=== PATIENT | male | born 1950 | race Caucasian/White ===

== ENCOUNTER → 2020-05-03 | Day surgery (SDC) | payer MEDICARE, OTHER ==
[2020-04-30 11:44] LABS: BASOPHILS # (AUTO) 0.1 (0.0-0.1); BASOPHILS % 0.5 % (0.0-1.0); EOSINOPHILS # (AUTO) 0.3 (0.0-0.4); EOSINOPHILS % 2.1 % (0.0-6.0); HEMATOCRIT 35.2 % (38.2-49.6); HEMOGLOBIN 10.7 g/dL (14.0-18.0); LYMPHOCYTES # (AUTO) 0.6 (1.0-3.2); LYMPHOCYTES % 5.2 % (18.0-39.1); MEAN CORPUSCULAR HEMOGLOBIN 28.7 pg (28-32); MEAN CORPUSCULAR HGB CONC 30.4 g/dL (31-35); MEAN CORPUSCULAR VOLUME 94.4 fL (81-99); MONOCYTES # (AUTO) 0.8 (0.2-0.8); MONOCYTES % 6.4 % (4.4-11.3); NEUTROPHILS # (AUTO) 10.1 (2.1-6.9); NEUTROPHILS % 85.5 % (38.7-80.0); PLATELET COUNT 224 x10e3/uL (140-360); RED BLOOD COUNT 3.73 x10e6/uL (4.3-5.7); RED CELL DISTRIBUTION WIDTH 15.4 % (11.7-14.4)
--- NOTE | 2020-04-30 11:45 | Diagnostic Imaging Report ---
EXAM: CHEST 2 VIEWS DATE: 04/30/2020 11:26 AM INDICATION: Preoperative evaluation COMPARISON: None FINDINGS: The trachea is midline. The lungs are symmetrically expanded without evidence for large focal consolidation, pneumothorax, or significant pleural effusion. The cardiomediastinal silhouette and pulmonary vasculature are within normal limits. No acute osseous abnormality is identified. The surrounding soft tissues are unremarkable. IMPRESSION: No acute cardiopulmonary process identified. Signed by: Dr. Lamberto Hughes MD on 04/30/2020 11:41 AM
[2020-04-30 12:00] LABS: ANION GAP 15.8 mmol/L (8-16); CALCIUM 9.7 mg/dL (8.4-10.2); CREATININE, SERUM 6.67 mg/dL (0.72-1.25); POTASSIUM 3.8 mmol/L (3.5-5.1)
[~2020-05-03] MED LIST: ACETAMINOPHEN 1000 MG/100 ML IV ONE; ACETAMINOPHEN/CODEINE 300MG - 30MG TAB ONE; ASPIR 8181 MG PO; BUPIVACAINE 0.25% 30ML SDV INJ ONE; CEFTRIAXONE SOD 1 GM/NS 50 ML 50 ML IV ONE; DEXAMETHASONE SOD PHOS INJ 4 MG/ML VIAL ONE; ETOMIDATE 2 MG/ML 10 ML INJ IV ONE; FENTANYL CITRATE/PF 100MCG/2 ML INJ ONE; FOLIC ACID PO; HYDROMORPHONE 1MG/1ML INJ ONE; LABETALOL HCL 5 MG/ML 20ML VIAL ONE; LABETALOL HCL200 MG PO; LIDOCAINE HCL 2% LOCAL INJ 5 ML SDV VIAL INJ ONE; LIPITOR10 MG PO; MORPHINE SULFATE INJ 4 MG/ML INJ 1ML ONE; NIFEDIPINE ER30 M1 PO; ONDANSETRON HCL INJ 2MG/ML 2ML 2 MG/ML VIAL ONE; PROPOFOL IV EMULSION 10 MG/ML 20 ML VIAL ONE; RENVELA0.8 GM PO; SEVOFLURANE INHAL SOLN 250 ML PEN BTL ONE; SODIUM CHLORIDE 0.9% 500ML 500 ML ONE
[2020-05-03 11:10] VITALS: BP 186/88
--- NOTE | 2020-05-24 09:25 | Operative Report ---
DATE OF PROCEDURE: 05/03/2020 SURGEON: Myke Forte MD PREOPERATIVE DIAGNOSIS: Penile mass and phimosis. 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 OPERATIVE PROCEDURE PERFORMED: Partial penectomy. ANESTHESIA: General anesthesia. ESTIMATED BLOOD LOSS: 50 mL. INDICATIONS: Mr. Carlos Hastings is a 69-year-old gentleman with a long history of purulent drainage from under his foreskin and phimosis. In the office, he was noted to have a palpable penile mass with purulent drainage and discharge. He now presents for potential management of this problem. PROCEDURE IN DETAIL: The patient was brought to the operative room, placed in supine position. After initiation of general anesthesia, was prepped and draped in usual sterile fashion. The purulent drainage was noted to come from underneath the foreskin and intraoperative cultures were obtained. A dorsal slit was then performed and the foreskin forcibly retracted. The patient was noted to have an erosive process involving the distal end of the penis and the entire glans. It appeared to be potentially neoplastic. There is [place] edema seen in the entire penis up to the proximal shaft. No obvious urethral lumen was found. The patient is on known dialysis and does not make urine. The decision was made to do a partial penectomy amputating the grossly purulent and necrotic portions of the penis, but not to remove the entire shaft. The residual tissue was noted to be edematous but bled. Again, no obvious urethral lining was noted. The glans and the distal end of the shaft was sent to pathology for microscopic analysis. The cavernosal bodies were closed using interrupted [id number] Vicryl sutures. The drain was placed under the dorsal skin into the penile base. This was a quarter-inch Jas drain in order to allow continued drainage of the purulent material. The penile wound was then closed using interrupted mattress sutures. The wound was then cleaned and dried and the patient was placed in mesh panties with the wound covered with gauze. Anesthesia was reversed. He was transferred to a bed and taken to the postanesthesia care unit in good condition. Of note, the needle and instrument count were correct at the conclusion of the case. MD ALEXIS Hays/BECKY /[id number]
== END | disposition home or self-care (01) ==
LOC: OR 06:09
PROVIDERS: ATTEND Urology
DX: N48.89 Other specified disorders of penis (principal); N47.1 Phimosis; N48.0 Leukoplakia of penis; E11.22 Type 2 diabetes mellitus with diabetic chronic kidney disease; I12.0 Hypertensive chronic kidney disease with stage 5 chronic kidney disease or end stage renal disease; I44.0 Atrioventricular block, first degree; N18.6 End stage renal disease; Z01.810 Encounter for preprocedural cardiovascular examination; Z01.812 Encounter for preprocedural laboratory examination; Z01.818 Encounter for other preprocedural examination; Z11.59 Encounter for screening for other viral diseases; Z79.82 Long term (current) use of aspirin; Z99.2 Dependence on renal dialysis; Z86.73 Personal history of transient ischemic attack (TIA), and cerebral infarction without residual deficits
CPT/HCPCS: 36415 ×2; 54120; 71046; 80048; 84132; 85025; 87071; 87075; 87205; 87635; 88307; 93005; J0131; J0696; J1100; J1170; J2001; J2270; J2405; J2704; J3010; J3490; J7040; 88309